=== PATIENT | male | born 1950 | race Caucasian/White ===

== ENCOUNTER 2016-11-14 14:26 | Inpatient (IN) | payer MEDICARE ==
[2016-11-14] MEDS ORDERED: SODIUM CHLORIDE 0.9% 1,000 ML IV STA (15:38)
--- NOTE | 2016-11-14 15:39 | ED ---
General Adult HPI - General Chief complaint: Altered Mental Status Stated complaint: evaluation Time Seen by Provider: 11/14/16 15:23 Source: patient, family, RN notes reviewed, old records reviewed Mode of arrival: ambulatory Limitations: altered mental status - History of Present Illness Initial comments: This is a 66-year-old male the ER for evaluation. Patient coming in for evaluation of multiple issues. Patient is poor historian secondary to dementia and altered mental status is unable to give history. Family is here at bedside. Patient is having a pleuritic chest pain, but increased altered mental status for a few days to weeks now. Family concern. Patient also having decreased activity decreased appetite. No recent change in medications. No fever cough congestion, occasional shortness of breath with exertion for family - Related Data Home Medications Medication Instructions Recorded Confirmed Donepezil [Aricept] 10 mg PO HS 11/14/16 11/14/16 Escitalopram [Lexapro] 10 mg PO DAILY 11/14/16 11/14/16 Lisinopril [Zestril] 2.5 mg PO DAILY 11/14/16 11/14/16 Memantine [Namenda] 10 mg PO BID 11/14/16 11/14/16 Pantoprazole Sodium [Protonix] 20 mg PO DAILY 11/14/16 11/14/16 Simvastatin [Zocor] 10 mg PO HS 11/14/16 11/14/16 risperiDONE [RisperDAL] 0.5 mg PO HS 11/14/16 11/14/16 Allergies Allergy/AdvReac Type Severity Reaction Status Date / Time No Known Allergies Allergy Verified 11/14/16 15:52 Review of Systems ROS Statement: Those systems with pertinent positive or pertinent negative responses have been documented in the HPI. ROS Other: All systems not noted in ROS Statement are negative. Past Medical History Past Medical History: Dementia History of Any Multi-Drug Resistant Organisms: None Reported Past Surgical History: No Surgical Hx Reported Past Psychological History: Depression Smoking Status: Never smoker Past Alcohol Use History: None Reported Past Drug Use History: None Reported General Exam Limitations: altered mental status General appearance: alert, in no apparent distress Head exam: Present: atraumatic, normocephalic, normal inspection Eye exam: Present: normal appearance, PERRL, EOMI. Absent: scleral icterus, conjunctival injection, periorbital swelling ENT exam: Present: normal exam, mucous membranes moist Neck exam: Present: normal inspection. Absent: tenderness, meningismus, lymphadenopathy Respiratory exam: Present: normal lung sounds bilaterally. Absent: respiratory distress, wheezes, rales, rhonchi, stridor Cardiovascular Exam: Present: regular rate, normal rhythm, normal heart sounds. Absent: systolic murmur, diastolic murmur, rubs, gallop, clicks GI/Abdominal exam: Present: soft, normal bowel sounds. Absent: distended, tenderness, guarding, rebound, rigid Extremities exam: Present: normal inspection, full ROM, normal capillary refill. Absent: tenderness, pedal edema, joint swelling, calf tenderness Back exam: Present: normal inspection Neurological exam: Present: alert, oriented X3, CN II-XII intact Psychiatric exam: Present: normal affect, normal mood Skin exam: Present: warm, dry, intact, normal color. Absent: rash Course Vital Signs 11/14/16 14:46 Temperature 97.8 F Pulse Rate 64 Respiratory 20 Rate Blood Pressure 119/73 O2 Sat by Pulse 96 Oximetry - Reevaluation(s) Reevaluation #1: 11/14/16 15:39 Patient's medical records thoroughly reviewed, no prior ER visit for heart disease or hospital admission Reevaluation #2: 11/14/16 15:39 Her family patient does appear complaining of chest pain especially with exertion, sometimes sleeping at night Reevaluation #3: 11/14/16 15:39 Patient also having incontinence of stool and urine EKG Findings - EKG Comments: EKG Findings:: EKG shows normal sinus murmurs 64, IA 142, QRS 96, QTC 445 Medical Decision Making - Medical Decision Making 66 male the ER for evaluation of chest pain, weakness, shortness of breath and debility. Patient be admitted for cardiac observation. - Lab Data Result diagrams: 11/14/16 16:10 11/14/16 16:10 Lab Results 11/14/16 11/14/16 11/14/16 Range/Units 14:50 16:10 16:10 WBC 6.6 (3.8-10.6) k/uL RBC 4.44 (4.30-5.90) m/uL Hgb 13.6 (13.0-17.5) gm/dL Hct 42.8 (39.0-53.0) % MCV 96.4 (80.0-100.0) fL MCH 30.7 (25.0-35.0) pg MCHC 31.9 (31.0-37.0) g/dL RDW 14.3 (11.5-15.5) % Plt Count 295 (150-450) k/uL Neutrophils % 66 % Lymphocytes % 24 % Monocytes % 6 % Eosinophils % 1 % Basophils % 1 % Neutrophils # 4.4 (1.3-7.7) k/uL Lymphocytes # 1.6 (1.0-4.8) k/uL Monocytes # 0.4 (0-1.0) k/uL Eosinophils # 0.1 (0-0.7) k/uL Basophils # 0.0 (0-0.2) k/uL PT (9.0-12.0) sec INR (<1.1) APTT (22.0-30.0) sec Sodium (137-145) mmol/L Potassium (3.5-5.1) mmol/L Chloride (98-107) mmol/L Carbon Dioxide (22-30) mmol/L Anion Gap mmol/L BUN (9-20) mg/dL Creatinine (0.66-1.25) mg/dL Est GFR (MDRD) Af Amer (>60 ml/min/1.73 sqM) Est GFR (MDRD) Non-Af (>60 ml/min/1.73 sqM) Glucose (74-99) mg/dL Calcium (8.4-10.2) mg/dL Phosphorus (2.5-4.5) mg/dL Magnesium (1.6-2.3) mg/dL Total Bilirubin (0.2-1.3) mg/dL AST (17-59) U/L ALT (21-72) U/L Alkaline Phosphatase (38-126) U/L Total Creatine Kinase 54 L (55-170) U/L CK-MB (CK-2) 1.5 (0.0-2.4) ng/mL CK-MB (CK-2) Rel Index 2.8 Troponin I <0.012 (0.000-0.034) ng/mL Total Protein (6.3-8.2) g/dL Albumin (3.5-5.0) g/dL Urine Color Light Yellow Urine Appearance Clear (Clear) Urine pH 6.0 (5.0-8.0) Ur Specific [place] 1.005 (1.001-1.035) Urine Protein Negative (Negative) Urine Glucose (UA) Negative (Negative) Urine Ketones Negative (Negative) Urine Blood Negative (Negative) Urine Nitrite Negative (Negative) Urine Bilirubin Negative (Negative) Urine Urobilinogen <2.0 (<2.0) mg/dL Ur Leukocyte Esterase Negative (Negative) 11/14/16 11/14/16 Range/Units 16:10 16:10 WBC (3.8-10.6) k/uL RBC (4.30-5.90) m/uL Hgb (13.0-17.5) gm/dL Hct (39.0-53.0) % MCV (80.0-100.0) fL MCH (25.0-35.0) pg MCHC (31.0-37.0) g/dL RDW (11.5-15.5) % Plt Count (150-450) k/uL Neutrophils % % Lymphocytes % % Monocytes % % Eosinophils % % Basophils % % Neutrophils # (1.3-7.7) k/uL Lymphocytes # (1.0-4.8) k/uL Monocytes # (0-1.0) k/uL Eosinophils # (0-0.7) k/uL Basophils # (0-0.2) k/uL PT 10.1 (9.0-12.0) sec INR 1.0 (<1.1) APTT 23.8 (22.0-30.0) sec Sodium 141 (137-145) mmol/L Potassium 4.3 (3.5-5.1) mmol/L Chloride 102 (98-107) mmol/L Carbon Dioxide 32 H (22-30) mmol/L Anion Gap 7 mmol/L BUN 17 (9-20) mg/dL Creatinine 0.65 L (0.66-1.25) mg/dL Est GFR (MDRD) Af Amer >60 (>60 ml/min/1.73 sqM) Est GFR (MDRD) Non-Af >60 (>60 ml/min/1.73 sqM) Glucose 90 (74-99) mg/dL Calcium 9.1 (8.4-10.2) mg/dL Phosphorus 4.1 (2.5-4.5) mg/dL Magnesium 2.3 (1.6-2.3) mg/dL Total Bilirubin 0.4 (0.2-1.3) mg/dL AST 23 (17-59) U/L ALT 35 (21-72) U/L Alkaline Phosphatase 93 (38-126) U/L Total Creatine Kinase (55-170) U/L CK-MB (CK-2) (0.0-2.4) ng/mL CK-MB (CK-2) Rel Index Troponin I (0.000-0.034) ng/mL Total Protein 6.6 (6.3-8.2) g/dL Albumin 4.1 (3.5-5.0) g/dL Urine Color Urine Appearance (Clear) Urine pH (5.0-8.0) Ur Specific [place] (1.001-1.035) Urine Protein (Negative) Urine Glucose (UA) (Negative) Urine Ketones (Negative) Urine Blood (Negative) Urine Nitrite (Negative) Urine Bilirubin (Negative) Urine Urobilinogen (<2.0) mg/dL Ur Leukocyte Esterase (Negative) - Radiology Data Radiology results: report reviewed (Chest x-ray is negative for acute disease), image reviewed Disposition Clinical Impression: Debility, Falls frequently, Chest pain, Altered mental status Disposition: ADMITTED IP TO THIS [facility] Condition: Fair Referrals: Nonstaff,Physician [Primary Care Provider] - 1-2 days
[2016-11-14 16:41] LABS: Appearance,Urine Clear (Clear); Bilirubin,Urine Negative (Negative); Glucose,Urine (UA) Negative (Negative); Ketones,Urine Negative (Negative); Leukocyte Esterase,Urine Negative (Negative); Nitrite,Urine Negative (Negative); Protein,Urine Negative (Negative); Specific Gravity,Urine 1.005 (1.001-1.035); UA Billing (MACRO vs. MICRO) CHEM; Urobilinogen,Urine <2.0 mg/dL (<2.0)
[2016-11-14 16:48] LABS: Basophils % (A) 1 %; CH 29.9; CHCM 31.1; Eosinophils # (A) 0.1 k/uL (0-0.7); Eosinophils % (A) 1 %; HCT 42.8 % (39.0-53.0); HDW 2.03; HGB 13.6 gm/dL (13.0-17.5); Luc # (Auto) 0.16; Luc % (Auto) 2; Lymphocytes # (A) 1.6 k/uL (1.0-4.8); Lymphocytes % (A) 24 %; MCH 30.7 pg (25.0-35.0); MCHC 31.9 g/dL (31.0-37.0); MCV 96.4 fL (80.0-100.0); Mean Platelet Volume 7.7; Monocytes # (A) 0.4 k/uL (0-1.0); Monocytes % (A) 6 %; Neutrophils # (A) 4.4 k/uL (1.3-7.7); Neutrophils % (A) 66 %; RBC 4.44 m/uL (4.30-5.90); RDW 14.3 % (11.5-15.5); WBC 6.6 k/uL (3.8-10.6); WBC (Perox) 6.54
[2016-11-14 16:50] LABS: Partial Thromboplastin Time 23.8 sec (22.0-30.0); Prothrombin Time 10.1 sec (9.0-12.0)
[2016-11-14 16:51] LABS: ALT 35 U/L (21-72); AST 23 U/L (17-59); Alkaline Phosphatase 93 U/L (38-126); Anion Gap 7 mmol/L; Blood Urea Nitrogen 17 mg/dL (9-20); Calcium 9.1 mg/dL (8.4-10.2); Carbon Dioxide 32 mmol/L (22-30); Chloride 102 mmol/L (98-107); Glucose 90 mg/dL (74-99); Magnesium 2.3 mg/dL (1.6-2.3); Non-African American GFR(MDRD) >60 (>60 ml/min/1.73 sqM); Phosphorous 4.1 mg/dL (2.5-4.5); Sodium 141 mmol/L (137-145); Total Bilirubin 0.4 mg/dL (0.2-1.3); Total Protein 6.6 g/dL (6.3-8.2)
[2016-11-14 16:53] LABS: Potassium 4.3 mmol/L (3.5-5.1)
[2016-11-14 17:03] LABS: Creatine Kinase 54 U/L (55-170)
[2016-11-14 17:16] LABS: Creatine Kinase MB 1.5 ng/mL (0.0-2.4); Troponin I <0.012 ng/mL (0.000-0.034)
[2016-11-14] MEDS ORDERED: NITROGLYCERIN SL TABS 0.4 MG TAB SUBLINGUAL PRN (17:47)
[2016-11-14] MEDS ORDERED: ASPIRIN 81 MG CHEW PO STA (17:47)
--- NOTE | 2016-11-14 18:12 | XR ---
EXAMINATION TYPE: XR chest 2V DATE OF EXAM: 11/14/2016 5:47 PM COMPARISON: NONE HISTORY: Weakness and chest pain TECHNIQUE: Frontal and lateral views of the chest are obtained. FINDINGS: Heart is normal. Lungs are clear of consolidation. There are no hilar masses. Thoracic aor ta is atheromatous. There is no pleural effusion. Bony thorax appears intact. IMPRESSION: No active cardiopulmonary disease.
[2016-11-14] MEDS ORDERED: TEMAZEPAM 15 MG CAP PO PRN (20:48)
[2016-11-14] MEDS ORDERED: HYDROcodone/APAP 5-325MG 1 EACH TAB PO PRN (20:48)
[2016-11-14] MEDS ORDERED: ALPRAZolam 0.25 MG TAB PO PRN (20:48)
[2016-11-14 23:45] LABS: Creatine Kinase MB 1.2 ng/mL (0.0-2.4); Troponin I 0.014 ng/mL (0.000-0.034)
[2016-11-15 04:23] LABS: Basophils % (A) 0 %; CH 30.2; CHCM 31.6; Eosinophils # (A) 0.1 k/uL (0-0.7); Eosinophils % (A) 2 %; HCT 37.7 % (39.0-53.0); HDW 2.14; HGB 12.2 gm/dL (13.0-17.5); Luc # (Auto) 0.12; Luc % (Auto) 2; Lymphocytes # (A) 2.1 k/uL (1.0-4.8); Lymphocytes % (A) 36 %; MCH 31.1 pg (25.0-35.0); MCHC 32.4 g/dL (31.0-37.0); MCV 95.9 fL (80.0-100.0); Mean Platelet Volume 7.5; Monocytes # (A) 0.4 k/uL (0-1.0); Monocytes % (A) 6 %; Neutrophils # (A) 3.1 k/uL (1.3-7.7); Neutrophils % (A) 53 %; RBC 3.93 m/uL (4.30-5.90); RDW 14.3 % (11.5-15.5); WBC 5.9 k/uL (3.8-10.6); WBC (Perox) 6.25
[2016-11-15 05:05] LABS: Anion Gap 6 mmol/L; Blood Urea Nitrogen 16 mg/dL (9-20); Calcium 8.8 mg/dL (8.4-10.2); Carbon Dioxide 30 mmol/L (22-30); Chloride 108 mmol/L (98-107); Cholesterol 156 mg/dL (<200); Glucose 85 mg/dL (74-99); HDL Cholesterol 65 mg/dL (40-60); Non-African American GFR(MDRD) >60 (>60 ml/min/1.73 sqM); Sodium 144 mmol/L (137-145); Triglycerides 105 mg/dL (<150)
[2016-11-15 05:30] LABS: Creatine Kinase MB 1.2 ng/mL (0.0-2.4); Troponin I 0.021 ng/mL (0.000-0.034)
[2016-11-15] MEDS: PANTOPRAZOLE 40 MG TABLET PO SCH (06:21)
[2016-11-15] MEDS: ASPIRIN 325 MG TAB PO SCH (08:20)
[2016-11-15] MEDS: ESCITALOPRAM 10 MG TAB PO SCH (08:20)
[2016-11-15] MEDS: ENOXAPARIN 40 MG/0.4 ML SYRINGE SQ SCH (08:20)
[2016-11-15] MEDS: MULTIVITAMINS, THERA 1 EACH TAB PO SCH (08:20)
[2016-11-15] MEDS: ATORVASTATIN 80 MG TAB PO SCH (08:20)
[2016-11-15 09:47] VITALS: BMI 20.5
--- NOTE | 2016-11-15 09:58 | HP ---
DATE OF ADMISSION: CHIEF COMPLAINT: Chest pain and falls. HISTORY OF PRESENT ILLNESS: This 66-year-old gentleman with a past medical history of multiple medical problems including dementia, history of depression, history of gait dysfunction was living with family apparently. The patient had multiple issues. The patient had multiple falls and patient also complaining of chest pain, which was rather pleuritic and patient also had some change in mental status. She is more confused than the baseline and apparent patient came to [facility] and was admitted for further evaluation and treatment. After admission, the CBC was found to be within normal limits. Troponin was 0.65. Creatinine kinase normal. Otherwise the chest x-ray showed no acute cardiopulmonary disease. EKG showed QS complex in anterior leads and ST changes also. The patient is minimally verbal and unable to give a coherent history. Most of the history is taken from discussion with staff and review of the chart. PAST MEDICAL HISTORY: History of dementia, history of depression, gait dysfunction. Medications prior to admission include: 1. Risperdal 0.5 mg at bedtime. 2. Zocor 10 mg at bedtime. 3. Aricept 10 mg at bedtime. 4. Protonix 20 mg daily. 5. Namenda 10 mg b.i.d. 6. Zestril 2.5 mg daily. 7. Lexapro 10 mg daily. ALLERGIES: None. Family history, social history and review of systems could not be taken because of the patient's baseline mental status. No smoking per chart. PHYSICAL EXAM: Pulse is 64, blood pressure 119/77, respirations 20, temperature 97.2, pulse ox 96% on room air. HEENT: Conjunctivae normal. Oral mucosa moist. NECK: No jugular venous distention. No carotid bruit. No lymph node enlargement. CARDIOVASCULAR: S1 and S2, muffled. No S3, no S4. RESPIRATORY: Breath sounds diminished at the bases. A few scattered rhonchi, no crackles. ABDOMEN: Soft, scaphoid, nontender. No mass palpable. LEGS: No edema, no swelling. NERVOUS SYSTEM: Higher function as mentioned. Otherwise, patient unable to cooperate for full neurological exam. Diffuse weakness noted. SKIN: No ulcer, rash or bleeding. LYMPHATIC: No lymphadenopathy in the neck, axillae or groin. JOINTS: No active deforming arthropathy. LABS: CBC within normal limits. CO2 is 32. Creatinine is 0.65. Other labs are noted. EKG reviewed personally. ASSESSMENT: 1. Chest pain for evaluation, possible unstable angina. 2. Gait dysfunction. 3. Severe protein calorie malnutrition with body mass index of 17.7. 4. Dementia. 5. History of depression. 6. Gastroesophageal reflux disease. 7. Hyperlipidemia. 8. FULL CODE. RECOMMENDATIONS AND DISCUSSION: In this 66-year-old gentleman who presented with multiple complex medial issues, will monitor the patient closely. Continue the current medications, continue symptomatic treatment. I recommend antiplatelet agents and 2-D echo with Doppler, Cardiology consultation to rule out myocardial infarction. Unstable angina protocol. Otherwise resume the home medications. Prognosis guarded because of multiple complex medical issues and further recommendations to follow. Follow PT, OT evaluation. Considered for possible ECF rehab. The patient will require more than 24 hours for evaluation management with the above mentioned symptoms. Please note the patient does have an abnormal EKG.
[2016-11-15] MEDS: LISINOPRIL 2.5 MG TAB PO SCH (11:16)
--- NOTE | 2016-11-15 13:56 | P.CRDCN ---
History of Present Illness Consult date: 11/15/16 Reason for Consult (text): Chest pain Chief complaint: altered mental status History of present illness: This is a 66-year-old gentleman with advanced dementia, HPI was obtained from the chart. Review of systems is unable to be obtained secondary to advanced dementia, confusion and failure to answer questions. Apparently the patient was brought to the emergency room by family due to increased and altered mental status and was apparently complaining of some pleuritic chest pain. Per nursing staff patient did not have c/o chest pain. The patient lives with her son, a son who lives in [place] is his power of state attorney. He also has a daughter who lives out of town Apparently the patient's mental status has been worsening over the last few days to a week. Patient has been falling frequently at home. Upon admission chest x-ray showed no acute cardiopulmonary process. Return evaluation BUN of 16, creatinine 0.7 and troponins less than 0.012, 0.014 and 0.021. Termination, patient answers minimal questions denies complaints of chest discomfort and denies falls at home. Other than that, patient does not answer further questions. Has a very flat affect. Past Medical History Past Medical History: Dementia, GERD/Reflux, Hyperlipidemia, Hypertension History of Any Multi-Drug Resistant Organisms: None Reported Past Surgical History: No Surgical Hx Reported Past Anesthesia/Blood Transfusion Reactions: No Reported Reaction Past Psychological History: Anxiety Smoking Status: Former smoker Past Alcohol Use History: None Reported Past Drug Use History: None Reported Medications and Allergies Home Medications Medication Instructions Recorded Confirmed Type Donepezil [Aricept] 10 mg PO HS 11/14/16 11/14/16 History Escitalopram [Lexapro] 10 mg PO DAILY 11/14/16 11/14/16 History Lisinopril [Zestril] 2.5 mg PO DAILY 11/14/16 11/14/16 History Memantine [Namenda] 10 mg PO BID 11/14/16 11/14/16 History Pantoprazole Sodium [Protonix] 20 mg PO DAILY 11/14/16 11/14/16 History Simvastatin [Zocor] 10 mg PO HS 11/14/16 11/14/16 History risperiDONE [RisperDAL] 0.5 mg PO HS 11/14/16 11/14/16 History Allergies Allergy/AdvReac Type Severity Reaction Status Date / Time No Known Allergies Allergy Verified 11/14/16 15:52 Physical Exam Vitals: Vital Signs Temp Pulse Pulse Resp BP BP Pulse Ox 11/15/16 08:24 97.4 F L 59 L 18 91/57 99 11/15/16 04:00 97.5 F L 64 16 117/64 99 11/15/16 00:00 97.5 F L 67 16 105/61 99 11/14/16 20:00 97.5 F L 63 16 125/77 100 11/14/16 18:55 98.0 F 67 16 105/55 99 11/14/16 18:03 97.5 F L 63 16 125/77 100 Intake and Output 11/14/16 11/15/16 11/15/16 22:59 06:59 14:59 Intake Total 0 120 Balance 0 120 Intake: Oral 0 120 Other: Voiding Method Incontinent Incontinent Incontinent # Voids 1 Weight 54.431 kg 63 kg 63 kg Patient Weight 11/16/16 06:59 Weight 63 kg PHYSICAL EXAMINATION: HEENT: Head is atraumatic, normocephalic. Pupils equal, round. Neck is supple. There is no elevated jugular venous pressure. HEART EXAMINATION: Heart sounds regular, S1 and S2 normal. No murmur or gallop heard. CHEST EXAMINATION: Lungs are clear to auscultation and precussion. No chest wall tenderness is noted on palpation or with deep breathing. ABDOMEN: Soft, nontender. Bowel sounds are heard. No organomegaly noted. EXTREMITIES: 2+ peripheral pulses with no evidence of peripheral edema and no calf tenderness noted. NEUROLOGIC patient is awake, alert oriented to self only. . Results 11/15/16 03:59 11/15/16 03:59 Cardiac Enzymes 11/14/16 11/15/16 Range/Units 22:22 03:59 CK-MB (CK-2) 1.2 1.2 (0.0-2.4) ng/mL Troponin I 0.014 0.021 (0.000-0.034) ng/mL Lipids 11/15/16 Range/Units 03:59 Triglycerides 105 (<150) mg/dL Cholesterol 156 (<200) mg/dL HDL Cholesterol 65 H (40-60) mg/dL CBC 11/15/16 Range/Units 03:59 WBC 5.9 (3.8-10.6) k/uL RBC 3.93 L (4.30-5.90) m/uL Hgb 12.2 L (13.0-17.5) gm/dL Hct 37.7 L (39.0-53.0) % Plt Count 267 (150-450) k/uL Comprehensive Metabolic Panel 11/15/16 Range/Units 03:59 Sodium 144 (137-145) mmol/L Potassium 4.0 (3.5-5.1) mmol/L Chloride 108 H (98-107) mmol/L Carbon Dioxide 30 (22-30) mmol/L BUN 16 (9-20) mg/dL Creatinine 0.70 (0.66-1.25) mg/dL Glucose 85 (74-99) mg/dL Calcium 8.8 (8.4-10.2) mg/dL Current Medications Generic Name Dose Route Start Last Admin Trade Name Freq PRN Reason Stop Dose Admin Hydrocodone Bitart/Acetaminophen 1 each 11/14/16 20:48 Putnam 5-325 PO Q6HR PRN Moderate Pain Alprazolam 0.25 mg 11/14/16 20:48 Xanax PO TID PRN Anxiety Aspirin 325 mg 11/15/16 09:00 11/15/16 08:20 Aspirin PO 325 mg DAILY SANTOS Administration Atorvastatin Calcium 80 mg 11/15/16 09:00 11/15/16 08:20 Lipitor PO 80 mg DAILY SANTOS Administration Atorvastatin Calcium 10 mg 11/15/16 21:00 Lipitor PO HS SANTOS Donepezil HCl 10 mg 11/15/16 21:00 Aricept PO HS SANTOS Enoxaparin Sodium 40 mg 11/15/16 09:00 11/15/16 08:20 Lovenox SQ 40 mg DAILY SANTOS Administration Escitalopram Oxalate 10 mg 11/15/16 09:00 11/15/16 08:20 Lexapro PO 10 mg DAILY SANTOS Administration Lisinopril 2.5 mg 11/15/16 09:00 Zestril PO DAILY SANTOS Memantine 10 mg 11/15/16 21:00 Namenda PO BID [facility] Multivitamins 1 each 11/15/16 12:00 11/15/16 08:20 Theragran PO 1 each DAILY@1200 [facility] Administration Nitroglycerin 0.4 mg 11/14/16 17:47 Nitrostat SUBLINGUAL Q5M PRN Chest Pain Pantoprazole Sodium 40 mg 11/15/16 07:30 11/15/16 06:21 Protonix PO Not Given AC-BRKFST SANTOS Risperidone 0.5 mg 11/15/16 21:00 Risperdal PO HS SANTOS Temazepam 15 mg 11/14/16 20:48 Restoril PO HS PRN Insomnia Intake and Output 11/14/16 11/15/16 11/15/16 22:59 06:59 14:59 Intake Total 0 120 Balance 0 120 Intake: Oral 0 120 Other: Voiding Method Incontinent Incontinent Incontinent # Voids 1 Weight 54.431 kg 63 kg 63 kg Patient Weight 11/16/16 06:59 Weight 63 kg 11/15/16 03:59 11/15/16 03:59 Assessment and Plan Plan: Assessment and plan #1 advanced dementia #2 multiple falls #3 questionable chest pain From cardiology perspective, we will obtain a 2-D echo. It doesn't seem as if the patient had any complaints of chest discomfort. We do not believe the patient's complaints to be cardiac in nature. We will see the patient on an as- needed basis. Please do not hesitate to call for questions. ORTHOPEDIC PODIATRIST note has been reviewed, I agree with a documented findings and plan of care. Patient was seen and examined.
--- NOTE | 2016-11-15 15:57 | ECHOF ---
Referral Reason:cad MEASUREMENTS -------- HEIGHT: 175.3 cm WEIGHT: 62.6 kg BP: 130/60 IVSd: 1.3 cm (0.6 - 1.1) LVIDd: 3.6 cm (3.9 - 5.3) LVPWd: 2.1 cm (0.6 - 1.1) IVSs: 1.4 cm LVIDs: 2.8 cm LVPWs: 1.4 cm Ao Diam: 3.8 cm (2.0 - 3.7) AV Cusp: 2.0 cm (1.5 - 2.6) LA Diam: 3.6 cm (2.7 - 3.8) MV EXCURSION: 28.113 mm (> 18.000) MV EF SLOPE: 119 mm/s (70 - 150) EPSS: 0.4 cm MV E Tan: 0.83 m/s MV DecT: 187 ms MV A Tan: 0.67 m/s MV E/A Ratio: 1.24 RAP: 5.00 mmHg RVSP: 31.94 mmHg FINDINGS -------- Sinus rhythm. This was a technically adequate study. There is mild concentric left ventricular hypertrophy. Overall left ventricular systolic function is low-normal with, an EF between 50 - 55 %. The right ventricle is normal in size. The left atrial size is normal. The right atrial size is normal. There is mild aortic valve sclerosis. There is no evidence of aortic regurgitation. Mild mitral annular calcification present. Mild mitral regurgitation is present. Mild tricuspid regurgitation present. There is no evidence of pulmonary hypertension. The right ventricular systolic pressure, as measured by Doppler, is 31.94mmHg. TV thickening. Trabecular in RV vs? Possible Thicking of TV Leaflets vs vegetation. The aortic root size is normal. There is no pericardial effusion. CONCLUSIONS -------- 1. There is mild concentric left ventricular hypertrophy. 2. Overall left ventricular systolic function is low-normal with, an EF between 50 - 55 %. 3. There is mild aortic valve sclerosis. 4. Mild mitral annular calcification present. 5. Mild mitral regurgitation is present. 6. Mild tricuspid regurgitation present. 7. There is no evidence of pulmonary hypertension. 8. The right ventricular systolic pressure, as measured by Doppler, is 31.94mmHg. 9. Possible Thicking of TV Leaflets vs vegetation. GENERAL II FARMWORKER: Maranda Rehman RDCS
[2016-11-15] MEDS: ATORVASTATIN 10 MG TAB PO SCH (20:40)
[2016-11-15] MEDS: MEMANTINE 10 MG TAB PO SCH (20:40)
[2016-11-15] MEDS: risperiDONE 0.5 MG TAB PO SCH (20:40)
[2016-11-15] MEDS: DONEPEZIL 10 MG TAB PO SCH (20:40)
[2016-11-16] MEDS: LISINOPRIL 2.5 MG TAB PO SCH (08:44)
[2016-11-16] MEDS: ATORVASTATIN 80 MG TAB PO SCH (08:44)
[2016-11-16] MEDS: ESCITALOPRAM 10 MG TAB PO SCH (08:44)
[2016-11-16] MEDS: ASPIRIN 325 MG TAB PO SCH (08:44)
[2016-11-16] MEDS: ENOXAPARIN 40 MG/0.4 ML SYRINGE SQ SCH (08:44)
[2016-11-16] MEDS: PANTOPRAZOLE 40 MG TABLET PO SCH (08:44)
[2016-11-16] MEDS: MEMANTINE 10 MG TAB PO SCH ×2 (08:45→21:29)
[2016-11-16 08:57] LABS: Basophils % (A) 1 %; CH 30.2; CHCM 30.8; Eosinophils # (A) 0.1 k/uL (0-0.7); Eosinophils % (A) 1 %; HCT 42.4 % (39.0-53.0); HGB 13.1 gm/dL (13.0-17.5); Luc # (Auto) 0.15; Luc % (Auto) 3; Lymphocytes # (A) 1.5 k/uL (1.0-4.8); Lymphocytes % (A) 28 %; MCH 30.4 pg (25.0-35.0); MCHC 30.8 g/dL (31.0-37.0); MCV 98.6 fL (80.0-100.0); Mean Platelet Volume 7.4; Monocytes # (A) 0.2 k/uL (0-1.0); Monocytes % (A) 5 %; Neutrophils # (A) 3.3 k/uL (1.3-7.7); Neutrophils % (A) 62 %; RBC 4.31 m/uL (4.30-5.90); RDW 14.5 % (11.5-15.5); WBC 5.4 k/uL (3.8-10.6); WBC (Perox) 5.23
[2016-11-16 09:15] LABS: Anion Gap 7 mmol/L; Blood Urea Nitrogen 17 mg/dL (9-20); Calcium 9.2 mg/dL (8.4-10.2); Carbon Dioxide 34 mmol/L (22-30); Chloride 102 mmol/L (98-107); Glucose 82 mg/dL (74-99); Non-African American GFR(MDRD) >60 (>60 ml/min/1.73 sqM); Potassium 4.6 mmol/L (3.5-5.1); Sodium 143 mmol/L (137-145)
--- NOTE | 2016-11-16 11:15 | PN ---
DATE OF SERVICE: 11/15/2016 This 66 -year-old gentleman admitted with chest pain also had abnormal EKG. Troponins were found to be 0.021 and 2-D echo with Doppler was done by cardiology which showed ejection fraction 50% to 55% low normal and multiple mild valvular abnormalities also. The patient thickening of the tricuspid valve leaflets versus vegetation's also suspected. Past medical history reviewed. PHYSICAL EXAMINATION: Patient is alert and oriented x 1. Pulse 62. Blood pressure 105/76. Respiratory rate 16. Temperature 96.7. Pulse ox 100% on room air. HEENT: Conjunctivae normal. NECK: No jugular venous distention. CARDIOVASCULAR: S1, S2 muffled. Ejection systolic murmur. RESPIRATORY: Breath sounds diminished at the bases. No rhonchi. No crackles. ABDOMEN: Soft, nontender. LEGS: No edema. No swelling. CENTRAL NERVOUS SYSTEM: No focal deficits. LABS: WBC 12.5, hemoglobin 12.2, total 45. is 65. ASSESSMENT: 1. Chest pain for evaluation. Possible unstable angina, rule out acute coronary syndrome. Troponin 0.021. 2. ST-T changes on the EKG. 3. Gait dysfunction. 4. Multiple mild valvular abnormalities. 5. tv valve thickening. 6. Severe protein calorie malnutrition, body mass index 17.7. 7. Dementia. 8. History of depression. 9. History of gastroesophageal reflux disease. 10. History of hyperlipidemia. 11. FULL CODE. RECOMMENDATIONS AND DISCUSSION: In this 66-year-old gentleman who presented with multiple complex medical issues, we will monitor the patient closely. Continue the current medications. Continue symptomatic treatment. Otherwise at this time, I recommend continue with current medications, continue to follow closely with cardiology. Continue with antiplatelet agents. PT, OT evaluation. Guarded prognosis because of multiple complex medical issues. Further recommendations to follow. MTDD
[2016-11-16] MEDS: MULTIVITAMINS, THERA 1 EACH TAB PO SCH (12:00)
[2016-11-16] MEDS: DONEPEZIL 10 MG TAB PO SCH (21:29)
[2016-11-16] MEDS: risperiDONE 0.5 MG TAB PO SCH (21:29)
[2016-11-16] MEDS: ATORVASTATIN 10 MG TAB PO SCH (21:29)
--- NOTE | 2016-11-17 06:57 | PN ---
DATE OF SERVICE: 11/16/2016 This 66-year-old gentleman who was admitted after chest pain, also had ST-T changes on the EKG. The patient was closely monitored. No fever. No cough. A 2-D echo with Doppler was reported as possible thickening of the tricuspid values leaflets versus vegetation and multiple valvular abnormalities also noted. No fever. On exam, sensorium is unchanged. Patient is confused. Pulse 84, blood pressure 105/59, respirations 20, temperature 98 degrees, pulse ox 98% on room air. HEENT: Conjunctivae normal. NECK: No jugular venous distention. CARDIOVASCULAR: S1 and S2, muffled. RESPIRATORY: Breath sounds diminished at the bases. No rhonchi, no crackles. ABDOMEN: Soft, nontender. LEGS: No edema, no swelling. NERVOUS SYSTEM: No focal deficits. Labs are WBC 5.4, hemoglobin 13.1. ASSESSMENT: 1. Chest pain for evaluation, possibly unstable angina, rule out acute coronary syndrome. Troponin 0.021. 2. ST-T changes on the EKG. 3. Gait dysfunction. 4. Multiple valvular abnormalities. 5. Tricuspid valve thickening. 6. Severe protein calorie malnutrition, body mass index of 17.7. 7. History of dementia. 8. Depression. 9. Gastroesophageal reflux disease. 10. Hyperlipidemia. 11. FULL CODE. RECOMMENDATIONS AND DISCUSSION: In this 66-year-old gentleman who presented with multiple complex medical issues, will continue the current medications. Continue symptomatic treatment. Otherwise, at this time I would recommend to closely follow with Cardiology regarding possible MIGUEL A or further cardiac workup. Prognosis guarded. Further recommendations to follow.
[2016-11-17 08:46] LABS: Basophils # (A) 0.1 k/uL (0-0.2); Basophils % (A) 1 %; CH 30.1; CHCM 31.1; Eosinophils # (A) 0.1 k/uL (0-0.7); Eosinophils % (A) 1 %; HDW 1.99; HGB 12.7 gm/dL (13.0-17.5); Luc # (Auto) 0.16; Luc % (Auto) 2; Lymphocytes % (A) 27 %; MCH 29.4 pg (25.0-35.0); MCHC 30.1 g/dL (31.0-37.0); MCV 97.4 fL (80.0-100.0); Mean Platelet Volume 7.5; Monocytes # (A) 0.4 k/uL (0-1.0); Monocytes % (A) 5 %; Neutrophils # (A) 4.8 k/uL (1.3-7.7); Neutrophils % (A) 64 %; RBC 4.31 m/uL (4.30-5.90); RDW 14.5 % (11.5-15.5); WBC 7.5 k/uL (3.8-10.6); WBC (Perox) 7.79
[2016-11-17 08:59] LABS: Anion Gap 9 mmol/L; Blood Urea Nitrogen 23 mg/dL (9-20); Calcium 9.3 mg/dL (8.4-10.2); Carbon Dioxide 29 mmol/L (22-30); Chloride 104 mmol/L (98-107); Glucose 97 mg/dL (74-99); Non-African American GFR(MDRD) >60 (>60 ml/min/1.73 sqM); Potassium 4.4 mmol/L (3.5-5.1); Sodium 142 mmol/L (137-145)
[2016-11-17] MEDS: MEMANTINE 10 MG TAB PO SCH ×2 (10:00→20:21)
[2016-11-17] MEDS: ESCITALOPRAM 10 MG TAB PO SCH (10:00)
[2016-11-17] MEDS: LISINOPRIL 2.5 MG TAB PO SCH (10:00)
[2016-11-17] MEDS: ENOXAPARIN 40 MG/0.4 ML SYRINGE SQ SCH (10:00)
[2016-11-17] MEDS: ASPIRIN 325 MG TAB PO SCH (10:00)
[2016-11-17] MEDS: ATORVASTATIN 80 MG TAB PO SCH (10:00)
[2016-11-17] MEDS: PANTOPRAZOLE 40 MG TABLET PO SCH (10:02)
[2016-11-17] MEDS: MULTIVITAMINS, THERA 1 EACH TAB PO SCH (13:23)
--- NOTE | 2016-11-17 14:59 | CDI ---
In responding to this query, please exercise your independent professional judgment. The [facility] Coding Staff and Clinical Documentation Specialists appreciate your assistance in clarifying documentation, maintaining compliance with coding guidelines, accurately documenting patients condition and capturing severity of illness. The fact that a question is asked does not imply that any particular answer is desired or expected. Communication forms are a method of clarifying documentation and are not made part of the Legal Health Record. Thank you in advance for your clarification. Last Revision, September 2015 Carrie Georges [address] [facility] [place] [address] Documentation Clarification Form Date: 11/17/2016 2:44:00 PM From: Andry Pollack, RN, BSN, CDI Admit Date: 11/15/2016 1:49:00 PM Patient Name: Genaro Alexander Visit Number: [id number] Discharge Date: Dr. Chen Rodgers: Altered mental status/Debility/freqent falls was documented in the ED notes. Patient history/risk factors: 66 yo male with history of dementia and depression. He has been falling at home. Per nuring notes, the patient is "no longer able to care for self, incontinent of urine/stool, with decreased communication". Per H&P, the pt has a gait dysfunction with severe PCM. Cardiology history of present illness reads, "nursing staff reports that patient did not have c/o CP and patient answers minimal questions, denies complaints of chest discomfort, has a very flat effect". He does not believe the patient's complaints are cardiac in nature. His impressions included "advanced dementia, multiple falls, questionable CP". Clinical Indicators: Labs: trops negative x3 Echo: LVEF 50-55% Treatment: Aricept, Namenda, Risperdal, Nutritional supplements, possible terminologist placement at [facility] home at d/c. In your professional opinion, please clarify the etiology of the altered mental status, if known. Progression of Dementia (if known, specify type and if with/without Behavioral Disturbance) Delirium (specify cause): Encephalopathy (specify Type and Underlying Medical Illness) Other condition (please specify) Unable to determine Please document in your progress notes and discharge summary in order to capture severity of illness and risk of mortality. Include clinical findings that support your diagnosis. FYI: Press F11 to launch patient chart. Place X here if this finding has no clinical significance, is not applicable or if you are not able to provide any additional documentation. MTDD
--- NOTE | 2016-11-17 18:20 | P.PN ---
Subjective Date of service 11/17/2016. Progress note being dictated for Dr. Rodgers. Interval history: This is a 66-year-old gentleman admitted with chest pain, ST having to changes per EKG, multiple valvular abnormalities and multiple other medical issues. Evaluated by cardiology with recommendations noted. Evaluated by PT/OT, poor cognition, slow steady gait, requiring 24/ supervision. Patient maintains a flat affect, minimally converses. Afebrile. Denies chest pain, palpitations or increased shortness of breath. Objective - Vital Signs Vital signs: Vital Signs Temp 98.6 F 11/17/16 15:00 Pulse 60 11/17/16 15:00 Resp 16 11/17/16 16:00 BP 86/47 11/17/16 15:00 Pulse Ox 98 11/17/16 15:00 Intake & Output 11/16/16 11/17/16 11/17/16 18:59 06:59 18:59 Intake Total 600 Balance 600 Intake: Oral 600 Other: Voiding Method Incontinent # Voids 1 4 5 # Bowel Movements 1 1 - Exam PHYSICAL EXAM: VITAL SIGNS: As above GENERAL: [Sitting up in bed, flat affect, minimally converses, no acute distress ] HEENT: [Pupils equal conjunctiva normal. Mucosa moist] NECK: [Supple, no JVD] RESPIRATORY EFFORT:[Normal] LUNGS: [Clear to auscultation, bilateral bases diminished, no wheezing rhonchi or crackles] CARDIOVASCULAR[regular S1 and S2, no edema] GI: [Abdomen soft, nontender, positive bowel sounds.] PSYCH: [Alert and oriented -1, confused, cooperative NEURO: No focal deficits - Labs CBC & Chem 7: 11/17/16 08:18 11/17/16 08:18 Labs: Abnormal Lab Results - Last 24 Hours (Table) 11/17/16 11/17/16 Range/Units 08:18 08:18 Hgb 12.7 L (13.0-17.5) gm/dL MCHC 30.1 L (31.0-37.0) g/dL BUN 23 H (9-20) mg/dL Assessment and Plan Plan: 1. Chest pain for evaluation, possibly unstable angina, rule out acute coronary syndrome, troponin 0.021. 2. [ST-T changes on EKG]. 3. [Gait dysfunction]. 4. [Multiple valvular abnormalities]. 5. [Tricuspid valve thickening]. 6. [Severe protein calorie malnutrition, BMI 20.5]. 7. [Acute on chronic metabolic encephalopathy with dementia, type unknown]. 8. Depression 9. Gastroesophageal reflux disease 10. Hyperlipidemia Plan: Continue on current medication regime ,monitoring and symptomatic treatment. Discharge planning in progress, possible ECF. PT/OT. Discharge planning in progress for tomorrow. Further recommendations to follow. The impression and plan of care has been dictated as directed. : I performed a H&P examination of this patient and discussed the same with the dictator. I agree with the dictator's note. Any additional findings/opinions/ etc. will be noted.
[2016-11-17] MEDS: risperiDONE 0.5 MG TAB PO SCH (20:21)
[2016-11-17] MEDS: ATORVASTATIN 10 MG TAB PO SCH (20:21)
[2016-11-17] MEDS: DONEPEZIL 10 MG TAB PO SCH (20:21)
--- NOTE | 2016-11-17 21:59 | PN ---
DATE OF SERVICE: 11/17/2016 This 66-year-old gentleman who was admitted with significant weakness also had gait dysfunction and significant cardiac abnormalities. Seen and evaluated the patient along with the nurse practitioner. Please refer to the nurse practitioner's notes and impression documented as a scribe for further information. Possible ECF rehab. Further recommendations to follow.
[2016-11-18 08:51] LABS: Basophils % (A) 0 %; CH 30.2; CHCM 31.4; Eosinophils # (A) 0.1 k/uL (0-0.7); Eosinophils % (A) 1 %; HCT 38.1 % (39.0-53.0); HDW 1.94; HGB 12.2 gm/dL (13.0-17.5); Luc # (Auto) 0.17; Luc % (Auto) 2; Lymphocytes # (A) 1.4 k/uL (1.0-4.8); Lymphocytes % (A) 17 %; MCH 30.9 pg (25.0-35.0); MCV 96.6 fL (80.0-100.0); Mean Platelet Volume 7.5; Monocytes # (A) 0.6 k/uL (0-1.0); Monocytes % (A) 7 %; Neutrophils # (A) 5.7 k/uL (1.3-7.7); Neutrophils % (A) 72 %; RBC 3.95 m/uL (4.30-5.90); RDW 14.5 % (11.5-15.5); WBC 7.9 k/uL (3.8-10.6); WBC (Perox) 8.57
[2016-11-18] MEDS: ATORVASTATIN 80 MG TAB PO SCH (09:30)
[2016-11-18] MEDS: LISINOPRIL 2.5 MG TAB PO SCH (09:30)
[2016-11-18] MEDS: ENOXAPARIN 40 MG/0.4 ML SYRINGE SQ SCH (09:30)
[2016-11-18] MEDS: ESCITALOPRAM 10 MG TAB PO SCH (09:30)
[2016-11-18] MEDS: PANTOPRAZOLE 40 MG TABLET PO SCH (09:30)
[2016-11-18] MEDS: ASPIRIN 325 MG TAB PO SCH (09:30)
[2016-11-18] MEDS: MEMANTINE 10 MG TAB PO SCH ×2 (09:30→20:42)
[2016-11-18 09:42] LABS: Anion Gap 4 mmol/L; Blood Urea Nitrogen 28 mg/dL (9-20); Calcium 8.7 mg/dL (8.4-10.2); Carbon Dioxide 33 mmol/L (22-30); Chloride 104 mmol/L (98-107); Glucose 83 mg/dL (74-99); Non-African American GFR(MDRD) >60 (>60 ml/min/1.73 sqM); Potassium 4.4 mmol/L (3.5-5.1); Sodium 141 mmol/L (137-145)
[2016-11-18] MEDS: MULTIVITAMINS, THERA 1 EACH TAB PO SCH (12:15)
--- NOTE | 2016-11-18 19:37 | P.CNNES ---
History of Present Illness Consult date: 11/18/16 History of Present Illness: The patient is a 66-year-old man admitted on November 14 with chest pain. The patient is unable to give a clear history due to his dementia. Apparently the family brought him to the hospital because he had described some pleuritic chest pain. Also been having reduced appetite. The patient is on Aricept and Namenda for dementia. According to the medical record the patient has been having some falls and gait disturbance. Also he has been having increased confusion of late. Review of Systems ROS unobtainable: due to mental status Past Medical History Past Medical History: Dementia, GERD/Reflux, Hyperlipidemia, Hypertension History of Any Multi-Drug Resistant Organisms: None Reported Past Surgical History: No Surgical Hx Reported Past Anesthesia/Blood Transfusion Reactions: No Reported Reaction Past Psychological History: Anxiety Smoking Status: Former smoker Past Alcohol Use History: None Reported Past Drug Use History: None Reported Medications and Allergies Home Medications Medication Instructions Recorded Confirmed Type Donepezil [Aricept] 10 mg PO HS 11/14/16 11/14/16 History Escitalopram [Lexapro] 10 mg PO DAILY 11/14/16 11/14/16 History Lisinopril [Zestril] 2.5 mg PO DAILY 11/14/16 11/14/16 History Memantine [Namenda] 10 mg PO BID 11/14/16 11/14/16 History Pantoprazole Sodium [Protonix] 20 mg PO DAILY 11/14/16 11/14/16 History Simvastatin [Zocor] 10 mg PO HS 11/14/16 11/14/16 History risperiDONE [RisperDAL] 0.5 mg PO HS 11/14/16 11/14/16 History Allergies Allergy/AdvReac Type Severity Reaction Status Date / Time No Known Allergies Allergy Verified 11/14/16 15:52 Physical Examination - Vital Signs Vital Signs: Vital Signs Temp Pulse Resp BP BP Pulse Ox 11/18/16 14:55 97.7 F 59 L 16 108/69 100 11/18/16 14:52 16 11/18/16 07:00 97.3 F L 64 16 97/64 97 11/17/16 23:00 98.4 F 85 14 96/61 97 Intake and Output 11/18/16 11/18/16 11/18/16 06:59 14:59 22:59 Intake Total 600 Balance 600 Intake: Oral 600 Other: Voiding Method Toilet # Voids 2 6 # Bowel Movements 1 - Constitutional General appearance: thin - EENT EENT: PERRL, hearing intact - Respiratory Respiratory: lungs clear - Cardiovascular Cardiovascular: regular rate - Neurologic Mental status the patient was awake he was able to say his name he was able to name an object and the color he did not know the city the town or the place where he was. He could not give his home address. He was unable to do calculations . He did not cooperate to read although he states he reads . there was no aphasia or dysarthria Cranial nerve examination: VFF, face symmetric, tongue midline Speech examination: intact, other (He was hesitant to speech but his words were articulate) Detailed motor examination: grossly full strength in all extremities Reflex and gait examination: intact - Psychiatric Psychiatric: agitated, depressed Results - Laboratory Findings CBC and BMP: 11/18/16 08:09 11/18/16 08:09 Abnormal Lab Findings: Abnormal Labs 11/16/16 11/16/16 11/17/16 08:08 08:08 08:18 RBC Hgb 12.7 L Hct MCHC 30.8 L 30.1 L Carbon Dioxide 34 H BUN 11/17/16 11/18/16 11/18/16 08:18 08:09 08:09 RBC 3.95 L Hgb 12.2 L Hct 38.1 L MCHC Carbon Dioxide 33 H BUN 23 H 28 H Assessment and Plan (1) Dementia Status: Chronic Code(s): F03.90 - UNSPECIFIED DEMENTIA WITHOUT BEHAVIORAL DISTURBANCE (2) Chest pain Status: Acute Code(s): R07.9 - CHEST PAIN, UNSPECIFIED (3) Falls frequently Status: Acute Code(s): R29.6 - REPEATED FALLS Plan: The patient is a 66-year-old man who presents to the hospital with chest pain. Neurology is requested to see the patient regarding dementia. And is currently on Namenda and Aricept for dementia. Patient is not cooperative to participate in answering any questions. His gait at this time seems to be steady. With history of frequent falls and dementia recommend CT brain rule out NPH. Patient has a tendency to wander and is restless. Doubt he would keep still for an MRI Recommend EEG and carotid ultrasound
--- NOTE | 2016-11-18 20:40 | PN ---
DATE OF SERVICE: 11/18/2016 This 66-year-old gentleman who was admitted with change in mental status also had some chest pain. The patient also had indeterminate troponin. Cardiology are following the patient closely. Conservative line of management is recommended. Otherwise, PT, OT is also evaluating for rehab potential. No chest pain. No palpitation. No fever. On exam, patient is conscious but confused. Minimally verbal. Pulse 59, blood pressure 108/69, respiration 16, temperature 97.6, pulse ox 100% on room air. HEENT: Conjunctivae normal. NECK: No jugular venous distention. CARDIOVASCULAR SYSTEM: S1, S2 muffled. RESPIRATORY SYSTEM: Breath sounds diminished at the bases. No rhonchi. No crackles. ABDOMEN: Soft, non-tender. LEGS: No edema. No swelling. NERVOUS SYSTEM: Diffusely weak. LAB INVESTIGATIONS: Hemoglobin 12.2, sodium 141, potassium 4.4. ASSESSMENT: 1. Chest pain, possible unstable angina, with indeterminate troponin at 0.021. 2. ST-T changes on the EKG. 3. Gait dysfunction. 4. Multiple valvular abnormalities. 5. Tricuspid valve thickening. 6. Severe protein-calorie malnutrition, body mass index of 20.5. 7. Acute on chronic metabolic encephalopathy with possible dementia, type unknown. 8. Depression. 9. Gastroesophageal reflux disease. 10. Hyperlipidemia. RECOMMENDATIONS AND DISCUSSION: I recommend to continue with the current medications, continue with the monitoring, symptomatic treatment. Otherwise, PT and OT evaluation. discharge an option with guarded prognosis. See orders for further details. Further recommendations to follow. MTDD
[2016-11-18] MEDS: risperiDONE 0.5 MG TAB PO SCH (20:42)
[2016-11-18] MEDS: ATORVASTATIN 10 MG TAB PO SCH (20:42)
[2016-11-18] MEDS: DONEPEZIL 10 MG TAB PO SCH (20:42)
[2016-11-19] MEDS: ASPIRIN 325 MG TAB PO SCH (08:30)
[2016-11-19] MEDS: MEMANTINE 10 MG TAB PO SCH (08:30)
[2016-11-19] MEDS: ENOXAPARIN 40 MG/0.4 ML SYRINGE SQ SCH (08:30)
[2016-11-19] MEDS: ESCITALOPRAM 10 MG TAB PO SCH (08:30)
[2016-11-19] MEDS: LISINOPRIL 2.5 MG TAB PO SCH (08:30)
[2016-11-19] MEDS: ATORVASTATIN 80 MG TAB PO SCH (08:30)
[2016-11-19] MEDS: PANTOPRAZOLE 40 MG TABLET PO SCH (08:30)
--- NOTE | 2016-11-19 08:36 | CT ---
"EXAMINATION TYPE: CT brain wo con DATE OF EXAM: 11/19/2016 8:26 AM COMPARISON: September 02, 2013 HISTORY: Altered mental status and frequent falls CT DLP: 1027.[address] of the brain was performed. The ventricles, basal cisterns and sulci overlying the cerebral convexities demonstrate mild enlargem ent. There is chronic right-sided subdural collection with small acute component noted measuring 2.3 cm in greatest transverse dimension. There is mild mass effect upon the right lateral ventricle. Right to left midline shift measures 3.4 mm. There is decreased attenuation about the periventricular white matter and deep white matter of both c erebral hemispheres, compatible with chronic small vessel ischemia. Differential diagnosis does inclu de demyelination. Osseous calvarium is intact. If symptoms persist consider MRI. IMPRESSION: 1. Chronic right-sided subdural collection with small acute component noted measuring 2.3 cm in great est transverse dimension. Mass effect upon the right lateral ventricle with mild right to left midlin e shift of 3.4 mm. No evidence for subfalcine herniation at this time. A Red message has been communicated to Dunia Turner MD via the [facility] | Critical Result sy stem on 11/19/2016 8:33 AM, Message ID [id number]."
[2016-11-19 09:17] VITALS: BP 108/75; PULSE 55; RESP 16; TEMP 97.4
[2016-11-19] MEDS ORDERED: DEXAMETHASONE SOD PHOSPHATE 4 MG/ML 1 ML VIAL IV PRN (09:50)
[2016-11-19] MEDS ORDERED: DEXAMETHASONE SOD PHOSPHATE 10 MG/ML 1 ML VIAL IV STA (09:50)
[2016-11-19 10:09] LABS: Basophils % (A) 1 %; CHCM 31.1; Eosinophils # (A) 0.1 k/uL (0-0.7); Eosinophils % (A) 1 %; HCT 40.7 % (39.0-53.0); HDW 1.95; HGB 12.6 gm/dL (13.0-17.5); Luc # (Auto) 0.12; Luc % (Auto) 2; Lymphocytes # (A) 1.4 k/uL (1.0-4.8); Lymphocytes % (A) 24 %; MCH 30.1 pg (25.0-35.0); MCV 97.1 fL (80.0-100.0); Mean Platelet Volume 7.7; Monocytes # (A) 0.3 k/uL (0-1.0); Monocytes % (A) 5 %; Neutrophils # (A) 3.8 k/uL (1.3-7.7); Neutrophils % (A) 68 %; RDW 14.2 % (11.5-15.5); WBC 5.7 k/uL (3.8-10.6); WBC (Perox) 5.87
[2016-11-19 10:30] LABS: Anion Gap 9 mmol/L; Calcium 9.2 mg/dL (8.4-10.2); Carbon Dioxide 29 mmol/L (22-30); Chloride 103 mmol/L (98-107); Glucose 107 mg/dL (74-99); Non-African American GFR(MDRD) >60 (>60 ml/min/1.73 sqM); Sodium 141 mmol/L (137-145)
[2016-11-19 10:51] LABS: Blood Urea Nitrogen 22 mg/dL (9-20); Potassium 4.7 mmol/L (3.5-5.1)
--- NOTE | 2016-11-19 10:52 | US ---
EXAMINATION TYPE: US carotid duplex BILAT DATE OF EXAM: 11/18/2016 9:00 PM COMPARISON: Prior in PACS CLINICAL HISTORY: Frequent falls. EXAM MEASUREMENTS: RIGHT: Peak Systolic Velocity (PSV) cm/sec ----- Right CCA: 108.9 ----- Right ICA: 98.7 ----- Right ECA: 66.7 ICA/CCA ratio: 0.9 RIGHT: End Diastole cm/sec ----- Right CCA: 18.8 ----- Right ICA: 21.7 ----- Right ECA: 15.9 LEFT: Peak Systolic Velocity (PSV) cm/sec ----- Left CCA: 95.8 ----- Left ICA: 106.0 ----- Left ECA: 110.1 ICA/CCA ratio: 1.1 LEFT: End Diastole cm/sec ----- Left CCA: 15.8 ----- Left ICA: 24.6 ----- Left ECA: 7.7 VERTEBRALS (direction of flow): Right Vertebral: Antegrade Left Vertebral: Antegrade Moderate amount of plaque visualized bilaterally, no elevated velocities Intimal thickening is present on the right. Large calcified plaques within the right carotid bulb. Si gnificant flow-limiting stenosis is not identified. A large plaques are present within the left carot id bulb. Significant flow-limiting stenosis is not identified. IMPRESSION: Atheromatous plaquing without significant flow-limiting stenosis. Criteria for Assigning % of Stenosis / Diameter reduction (Estimation based on the indirect measurements of the internal carotid artery velocities (ICA PSV). 1. Normal (no stenosis)=ICA PSV < 125 cm/s: ratio < 2.0: ICA EDV<40 cm/s. 2. Less than 50% stenosis=ICA PSV < 125 cm/s: ratio < 2.0: ICA EDV<40 cm/s. 3. 50 to 69% stenosis=ICA PSV of 125 to 230 cm/s: ration 2.0 ? 4.0: ICA EDV 40-100 cm/s. 4. Greater than 70% stenosis to near occlusion= ICA PSV > 230 cm/s: ratio > 4.0: ICA EDV > 100 cm/s. 5. Near occlusion= ICA PSV velocities may be low or undetectable: variable ratio and ICA EDV. 6. Total occlusion=unable to detect flow.
[2016-11-19] MEDS: MULTIVITAMINS, THERA 1 EACH TAB PO SCH (11:09)
--- NOTE | 2016-11-19 11:45 | DS ---
DATE OF ADMISSION: 11/15/2016 DATE OF DISCHARGE: Patient is a 66-year-old, came in with altered mental status, not sure whether patient has altered mental status or not. Patient has advanced dementia. Patient appears to have delirium, although patient apparently never complained about chest pain, but it was documented patient has just pain. Patient underwent evaluation for chest pain. Patient has very minimal elevation of troponins, which is not consistent with a myocardial infarction. Patient, apparently, we are unable to reach the family members at this point of time and patient was evaluated by Neurology because of confusion, which I believe is mostly chronic, nothing acute. Apparently, patient's family members are not reachable and it appears that they will not be able to take care of the patient. Most of her family members live in the [place] area and Neurology ordered a CT of the brain which showed some chronic right-sided subdural collection. Patient does not have any weakness or any seizure-like activity and along with that, patient has small acute component noted to be measuring about 2.3 cm, greatest in transverse dimension. Mass effect on the right lateral ventricle with mild right to left midline shift with no evidence of subfalcine herniation and Neurosurgery, Dr. Floridalma Turner believes patient needs to be evaluated by Neurosurgery. Patient is being transferred to [facility] for further evaluation by Neurosurgery. I finally evaluated the patient. Vital signs are stable. PHYSICAL EXAMINATION: GENERAL: The patient is alert and oriented x3, not in any acute distress. Well developed, well nourished. HEENT: Pupils are round and equally reacting to light. EOMI. No scleral icterus. No conjunctival pallor. Normocephalic, atraumatic. No pharyngeal erythema. No thyromegaly. CARDIOVASCULAR: S1 and S2 present. No murmurs, rubs, or gallops. PULMONARY: Chest is clear to auscultation, no wheezing or crackles. ABDOMEN: Soft, nontender, nondistended, normoactive bowel sounds. No palpable organomegaly. MUSCULOSKELETAL: No joint swelling or deformity. EXTREMITIES: No cyanosis, clubbing, or pedal edema. NEUROLOGICAL: Alert and oriented x1 which appears to be his baseline, although patient is on a couple narcotic medications which will be discontinued and I do not believe patient actually received them. SKIN: No rashes. ASSESSMENT AND PLAN: 1. Altered mental status, mostly appears to be chronic from dementia. There may be a component of acute delirium or metabolic encephalopathy, although my suspicion for acute metabolic encephalopathy is significantly low. 2. Subdural hematoma with chronic and acute hematoma because of which antiplatelet therapy and deep venous thrombosis prophylaxis were discontinued yesterday. 3. Mildly elevated troponin to 0.021, which is actually mostly normal. Cardiology evaluated the patient, multivalve abnormalities. I do not believe patient has severe protein calorie malnutrition, patient may have mild protein calorie malnutrition. 4. Depression. 5. Gastroesophageal reflux disease. 6. Hyperlipidemia. 7. Advanced dementia; probably dementia of Alzheimer's type. PLAN: Regarding antihypertensive medications, I do not believe he will need any. Patient will be discharged today. Transferred to high facility for neurosurgical evaluation that is [facility]. Spent greater than 35 minutes in total discharge process.
--- NOTE | 2016-11-22 08:41 | EEG ---
DATE OF SERVICE: 11/19/[address] Rodgers. CONSULTING INTERPRETING PHYSICIAN: Dr. Omar Turner INDICATIONS FOR EXAMINATION: This patient is a 66-year-old male with history of dementia. The patient admitted with altered mental status and confusion. AGE: 66Y EEG FINDINGS: A routine 21-channel, awake digital EEG recording was accomplished utilizing the 10 to 20 international system with bipolar and referential montages. The background activity in the most alert resting state consists of a low amplitude, poorly developed and poorly sustained 5 Hz activity over the posterior head regions. This posterior rhythm attenuates to eye opening. There is a small amount of low amplitude 18 to 20 Hz beta activity seen maximally over the anterior head regions. Muscle and movement artifact was observed on a few occasions during the tracing. Hyperventilation was not performed. Photic stimulation at flash frequencies of 2 to 30 Hz produced a minimal occipital driving response. No epileptiform discharges were seen. IMPRESSION: This EEG gives evidence of a severe widespread diffuse disturbance in cerebral function. The EEG failed to reveal any focal, lateralized or epileptiform abnormalities. If clinically indicated, a follow-up EEG is recommended. Clinical correlation is recommended.
--- NOTE | 2016-11-24 13:14 | CDI ---
In responding to this query, please exercise your independent professional judgment. The [facility] Coding Staff and Clinical Documentation Specialists appreciate your assistance in clarifying documentation, maintaining compliance with coding guidelines, accurately documenting patients condition and capturing severity of illness. The fact that a question is asked does not imply that any particular answer is desired or expected. Communication forms are a method of clarifying documentation and are not made part of the Legal Health Record. Thank you in advance for your clarification. Last Revision, May 2015 Carrie Georges [address] [place] [address] Documentation Clarification Form Date: 11/24/2016 12:58:00 PM From: Simran Gregory [facility] & Dafne Gonzáles, [employer] = [phone] Admit Date: 11/15/2016 1:49:00 PM Patient Name: Genaro Alexander Visit Number: [id number] Discharge Date: 11-19-16 Dr. Kashif Cevallos Please clarify, if possible if patient has traumatic or non-traumatic subdural hematoma, POA. Radiology findings: CT brain, unenhanced done 11-19-16 states "chronic right sided subdural collection with small acute component noted, measuring 2.3 cm in greatest transverse dimension. Mass effect upon the right lateral ventricle with mild right to left midline shift of 3.4 mm" Patient History/Risk Indicators: metabolic encephalopathy, history of repeated falls, gait disturbance, wandering, dementia, acute delirium, malnutrition. Treatment: Transferred to neuro-surgical evaluation at [facility]. Consults: yes -neurology In your professional opinion, can you please clarify if patient has traumatic or nontraumatic subdural hematoma? Other Unable to determine Please document in your progress notes and discharge summary in order to capture severity of illness and risk of mortality. Include clinical findings that support your diagnosis. FYI: Press F11 to launch patient chart. ___x__ Place X here if this finding has no clinical significance, is not applicable or if you are not able to provide any additional documentation. Patient was not seen by me PEDRO LUIS
== END 2016-11-19 11:55 | disposition short-term general hospital (02) | DRG 880 ==
LOC: EC 14:26 → 3OBS 17:47 → 6SEL 19:09 → OBSVTOIN 11-15 13:49 → 4MS4W 11-15 17:48
PROVIDERS: ADMIT Hospitalist; ATTEND Hospitalist
DX: F05 Delirium due to known physiological condition (principal); I62.01 Nontraumatic acute subdural hemorrhage; G93.41 Metabolic encephalopathy; I62.03 Nontraumatic chronic subdural hemorrhage; E44.1 Mild protein-calorie malnutrition; Z68.1 Body mass index [BMI] 19.9 or less, adult; G30.9 Alzheimer's disease, unspecified; F02.80 Dementia in other diseases classified elsewhere, unspecified severity, without behavioral disturbance, psychotic disturbance, mood disturbance, and anxiety; R15.9 Full incontinence of feces; I10 Essential (primary) hypertension; E78.5 Hyperlipidemia, unspecified; R01.1 Cardiac murmur, unspecified; R93.1 Abnormal findings on diagnostic imaging of heart and coronary circulation; R07.81 Pleurodynia; R53.1 Weakness; R32 Unspecified urinary incontinence; R29.6 Repeated falls; F32.9 Major depressive disorder, single episode, unspecified; K21.9 Gastro-esophageal reflux disease without esophagitis; F41.9 Anxiety disorder, unspecified; R94.31 Abnormal electrocardiogram [ECG] [EKG]; R74.8 Abnormal levels of other serum enzymes; R26.9 Unspecified abnormalities of gait and mobility; Z71.3 Dietary counseling and surveillance; Z91.81 History of falling; Z79.899 Other long term (current) drug therapy; Z87.891 Personal history of nicotine dependence; Z91.83 Wandering in diseases classified elsewhere
CPT/HCPCS: 36415; 70450; 71020; 80048; 80053; 80061; 81003; 82550; 82553; 83735; 84100; 84484; 85025; 85610; 85730; 87086; 93005; 93306; 93880; 95819; 96360; 96361; 96372; 99285